=== PATIENT | female | born 1955 | race Caucasian/White ===

== ENCOUNTER 2021-07-31 11:38 | Outpatient (REF) | payer OTHER, SELFPAY | END 2021-07-31 11:39 | disposition home or self-care (01) | LOC: HO.LAB 11:38 | PROVIDERS: Visit Provider Internal Medicine | DX: Z20.822 Contact with and (suspected) exposure to COVID-19 (principal) | CPT/HCPCS: U0003; U0005 ==

== ENCOUNTER 2024-10-19 10:37 | Outpatient (REF) | payer OTHER, SELFPAY ==
--- NOTE | ~2024-10-19 | CT_ITS ---
EXAMINATION: CT ABDOMEN AND PELVIS WITH CONTRAST CLINICAL INFORMATION: Abdominal discomfort and nausea COMPARISON: None TECHNIQUE: Multidetector volumetric imaging was performed from the superior aspect of the liver through the pubic symphysis with intravenous contrast. A total of 85 mL of Omnipaque 350 was utilized for the study. Sagittal and coronal reformatted images were obtained on the technologist's workstation. This CT examination was performed using dose optimization techniques as appropriate, variously including the following: *Automated exposure control *Adjustment of mA and/or kV according to patient size (this includes techniques or standardized protocols for targeted exams where dose is matched to indication/reason for exam; i.e. extremities or head) *Use of iterative reconstruction technique DLP: 372 mGy-cm FINDINGS: LUNG BASES: The visualized lung bases are unremarkable. Masslike areas are seen in the left breast. Please correlate with mammography. LIVER, GALLBLADDER, AND BILIARY TREE: The liver is normal in size, shape, and attenuation. No focal hepatic lesion or biliary ductal dilatation is present. Status post cholecystectomy. PANCREAS: Unremarkable. SPLEEN: Unremarkable. ADRENAL GLANDS: Unremarkable. KIDNEYS AND URETERS: The kidneys are normal in size, shape, and attenuation. No hydronephrosis, hydroureter, or calculi seen. Bilateral benign Bosniak class I renal cysts are noted which require no additional imaging or follow-up. There is a single right upper pole mass measuring 1 cm in size that measures about 40 Hounsfield units and is likely a Bosniak class II cyst but ultrasound is necessary for confirmation. BLADDER: Unremarkable. GASTROINTESTINAL TRACT: There are colonic diverticula without diverticulitis. There is a moderate stool burden throughout the colon. The small and large bowel are otherwise unremarkable. The appendix is not seen but there is no evidence of appendicitis. ABDOMINAL WALL: No significant hernia is appreciated. LYMPH NODES: No retroperitoneal lymphadenopathy. VASCULAR: Calcific atherosclerotic changes are present in the aorta and iliofemoral vessels. There is no evidence of an abdominal aortic aneurysm. PELVIC VISCERA: The uterus is not seen. An abnormal adnexal mass is not detected. No free intraperitoneal fluid is present. OSSEOUS STRUCTURES: Marked degenerative changes are present throughout the spine. CT/CT abdomen pelvis w IV con IMPRESSION: 1. A cause for the patient's abdominal discomfort and nausea has not been found. 2. Masslike areas in the left breast. Please correlate with mammography. 3. Cholecystectomy. 4. Colonic diverticulosis without diverticulitis. 5. Probable Bosniak class II right renal cyst. Ultrasound is recommended for confirmation. 6. Other incidental findings as described above. Fleischner guidelines were followed. Electronically signed by: Kyler Cook MD 10/22/2024 08:10 AM [facility]
[2024-10-19] MEDS: iohexoL 350 MG/ML 100 ML INFUS..BTL IV (13:39)
[2024-10-19] MEDS: Barium Sulfate Oral (Berry) 450 ML ORAL.SUSP 900 ML PO (13:40)
[2024-10-26 07:50] LABS: Creatinine POC 0.7 mg/dL (0.5-1.4); GFR POC > 60
== END 2024-10-19 10:38 | disposition home or self-care (01) ==
LOC: HO.CT 10:37
PROVIDERS: Visit Provider Family Medicine
DX: R10.9 Unspecified abdominal pain (principal); R11.0 Nausea; E03.9 Hypothyroidism, unspecified
CPT/HCPCS: 74177; Q9967

== ENCOUNTER 2024-10-20 09:41 | Outpatient (REF) | payer OTHER, SELFPAY ==
--- NOTE | ~2024-10-20 | MR_ITS ---
EXAMINATION: MR BRAIN WITHOUT CONTRAST CLINICAL INFORMATION: Daily headache COMPARISON: None available. TECHNIQUE: MRI of the brain was obtained using routine sequences without contrast. FINDINGS: No acute intracranial hemorrhage or infarct. Scattered and confluent periventricular and deep white matter T2/FLAIR hyperintensities, nonspecific however commonly seen with small vessel ischemic disease. No midline shift or hydrocephalus. No acute extra-axial fluid collections. The osseous structures are unremarkable. The pituitary gland, pineal gland and remaining midline structures are unremarkable. No orbital pathology. The paranasal sinuses and mastoid air cells are clear. MR/MR head/brain wo con IMPRESSION: 1. No acute intracranial abnormalities. 2. Chronic microangiopathy. Electronically signed by: Lexx Hagen MD 10/22/2024 12:01 PM [facility] [place]
== END 2024-10-20 09:42 | disposition home or self-care (01) ==
LOC: HO.MRI 09:41
PROVIDERS: PCP Family Medicine; Visit Provider Family Medicine
DX: R51.9 Headache, unspecified (principal); E03.9 Hypothyroidism, unspecified
CPT/HCPCS: 70551

== ENCOUNTER 2024-11-27 14:01 | Outpatient (REF) | payer OTHER, SELFPAY | END 2024-11-27 14:02 | disposition home or self-care (01) | LOC: HO.US 14:01 | PROVIDERS: PCP Family Medicine; Visit Provider Family Medicine | DX: N28.1 Cyst of kidney, acquired (principal); R19.7 Diarrhea, unspecified | CPT/HCPCS: 76775 ==

== ENCOUNTER → 2024-11-27 14:05 | Outpatient (BNV) | payer OTHER, SELFPAY | PROVIDERS: PCP Family Medicine; Visit Provider Radiology Diagnostic Radiology | DX: N28.1 Cyst of kidney, acquired (principal) | CPT/HCPCS: 76775 ==